=== PATIENT | female | born 1950 ===

== ENCOUNTER 2017-11-06 21:10 | Observation (INO) | payer MEDICARE, MEDICAID ==
--- NOTE | 2017-11-06 21:59 | ED PDOC ---
Arrival/HPI - General Chief Complaint: High Blood Pressure Time Seen by Provider: 11/06/17 21:50 Historian: Patient - History of Present Illness Narrative History of Present Illness (Text): 11/06/17 21:50 66 year old female, whose past medical history includes hypertension, hyperlipidemia and diabetes, who presents to the Emergency department complaining of neck and chest pain since 14:00 this afternoon. Patient notes he checked his blood pressure and it was at 200/100, so he panicked and came in to the Emergency department for further evaluation. Patient states her blood pressure was elevated on 11/02/17, and she came to see doctor who made some adjustments, giving her new medication, with no significant relief. Patient notes no improvement, stating she is not getting any better. Patient denies any fever, chills, shortness of breath, nausea, vomiting, diarrhea, urinary symptoms , back pain, headache, dizziness, or any other complaints. Time/Duration: Other (neck and chest pain since 14:00 this afternoon ) Symptom Onset: Sudden Symptom Course: Unchanged Activities at Onset: Light Context: Home Past Medical History - Provider Review Nursing Documentation Reviewed: Yes - Past History Past History: No Previous - Infectious Disease Hx of Infectious Diseases: None - Tetanus Immunization Tetanus Immunization: Unknown - Cardiac Hx Hypertension: Yes - Pulmonary Hx Asthma: Yes - Neurological HX Cerebrovascular Accident: No Hx Seizures: No Other/Comment: neuropathy - HEENT Hx HEENT Disorder: No - Renal Hx Renal Disorder: No - Endocrine/Metabolic Hx Diabetes Mellitus Type 2: Yes - Hematological/Oncological Hx Cancer: No - Integumentary Hx Dermatological Disorder: No - Musculoskeletal/Rheumatological Hx Musculoskeletal Disorders: No - Gastrointestinal Hx Gall Bladder Disease: Yes - Genitourinary/Gynecological Hx Sexually Transmitted Diseases: No - Psychiatric Hx Depression: No Hx Substance Use: No - Surgical History Hx Cholecystectomy: Yes - Anesthesia Hx Anesthesia: Yes Hx Anesthesia Reactions: No - Suicidal Assessment Feels Threatened In Home Enviroment: No Family/Social History - Physician Review Nursing Documentation Reviewed: Yes Family/Social History: No Known Family HX Smoking Status: Never Smoked Hx Alcohol Use: No Hx Substance Use: No Hx Substance Use Treatment: No Allergies/Home Meds Allergies/Adverse Reactions: Allergies No Known Allergies Allergy (Verified 10/30/15 10:33) Home Medications: Home Meds Medication Instructions Recorded Confirmed Fluticasone/Salmeterol 500/50 1 inh INH BID 10/30/15 11/06/17 [Advair Diskus 500/50] Metoprolol Tartrate [Lopressor] 25 mg PO BID 10/30/15 11/06/17 Gabapentin [Neurontin] 300 mg PO TID 12/30/15 11/06/17 Aspirin [Ecotrin] 1 tab PO DAILY 11/06/17 11/06/17 Ergocalciferol [Drisdol 50,000 1 cap PO Q7D 11/06/17 11/06/17 Intl Units Cap] Lisinopril [Zestril] 1 tab PO DAILY 11/06/17 11/06/17 Prednisone [Hilda] 1 tab PO DAILY 11/06/17 11/06/17 Rosuvastatin Calcium [Crestor] 1 tab PO HS 11/06/17 11/06/17 Review of Systems - Physician Review All systems were reviewed & negative as marked: Yes - Review of Systems Constitutional: Normal. absent: Fevers Eyes: Normal ENT: Normal Respiratory: Normal. absent: SOB Cardiovascular: Chest Pain (since 14:00 this afternoon). absent: Normal Gastrointestinal: Normal. absent: Diarrhea, Nausea, Vomiting Genitourinary Female: Normal Musculoskeletal: Neck Pain (neck pain since 14:00 this afternoon). absent: Normal, Back Pain Skin: Normal Neurological: Normal. absent: Headache, Dizziness Endocrine: Normal Hemo/Lymphatic: Normal Psychiatric: Normal Physical Exam Vital Signs Reviewed: Yes Vital Signs Temp Pulse Resp BP Pulse Ox 11/06/17 22:17 62 190/81 H 11/06/17 21:34 227/95 H 11/06/17 21:10 98.3 F 61 18 212/93 H 96 Temperature: Afebrile Blood Pressure: Hypertensive Pulse: Regular Respiratory Rate: Normal Appearance: Positive for: Well-Appearing, Non-Toxic Pain Distress: Mild Mental Status: Positive for: Alert and Oriented X 3 - Systems Exam Head: Present: Atraumatic, Normocephalic Pupils: Present: PERRL Extroacular Muscles: Present: EOMI Conjunctiva: Present: Normal Ears: Present: Normal Mouth: Present: Moist Mucous Membranes Pharnyx: Present: Normal Nose (External): Present: Atraumatic Nose (Internal): Present: Normal Inspection Neck: Present: Normal Range of Motion Respiratory/Chest: Present: Clear to Auscultation, Good Air Exchange. No: Respiratory Distress, Accessory Muscle Use Cardiovascular: Present: Regular Rate and Rhythm, Normal S1, S2. No: Murmurs Abdomen: No: Tenderness, Distention, Peritoneal Signs Back: Present: Normal Inspection Upper Extremity: Present: Normal Inspection. No: Cyanosis, Edema Lower Extremity: Present: Normal Inspection. No: Edema (no pedal edema) Neurological: Present: GCS=15, CN II-XII Intact, Speech Normal Skin: Present: Warm, Dry, Normal Color. No: Rashes Psychiatric: Present: Alert, Oriented x 3, Normal Insight, Normal Concentration Medical Decision Making ED Course and Treatment: 11/06/17 21:50 Impression: 66 year old female presents to the Emergency department complaining of neck and chest pain since 14:00 this afternoon. Differential Diagnosis included but are not limited to: Hypertensive urgency. chest pain, r/o CT. Plan: -- EKG -- Labs -- X-Ray of chest -- Apresoline -- Aspirin 325 mg PO -- O2 via Nasal Cannula -- Urinalysis -- Reassess and disposition Prior Visits: Notes and results from previous visits were reviewed. Progress Notes: EKG: Ordered, reviewed, and independently interpreted the EKG. Rate : 59 BPM Rhythm : Sinus bradycardia Interpretation : Normal axis. - RAD Interpretation Radiology Orders: 11/06/17 21:50 CHEST PORTABLE [RAD] Stat - EKG Interpretation Interpreted by ED Physician: Yes Type: 12 lead EKG - Medication Orders Current Medication Orders: Discontinued Medications Aspirin (Aspirin) 325 mg PO STAT STA Stop: 11/06/17 21:51 Last Admin: 11/06/17 22:16 Dose: 325 mg Hydralazine HCl (Apresoline) 10 mg IVP STAT STA Stop: 11/06/17 22:01 Last Admin: 11/06/17 22:17 Dose: 10 mg IVP Administration Document 11/06/17 22:17 AD (Rec: 11/06/17 22:17 AD [facility] [id number]) Charges for Administration # of IVP Administrations 1 MAR Pulse and Blood Pressure Document 11/06/17 22:17 AD (Rec: 11/06/17 22:17 AD [facility] [id number]) Pulse Pulse Rate (60-90 beats/min) 62 Blood Pressure Blood Pressure (100/60-150/90 mm Hg) 190/81 - Scribe Statement The provider has reviewed the documentation as recorded by the Scribe Sissy Guzmán All medical record entries made by the Scribe were at my direction and personally dictated by me. I have reviewed the chart and agree that the record accurately reflects my personal performance of the history, physical exam, medical decision making, and the department course for this patient. I have also personally directed, reviewed, and agree with the discharge instructions and disposition. Disposition/Present on Arrival - Present on Arrival Any Indicators Present on Arrival: No History of DVT/PE: No History of Uncontrolled Diabetes: No Urinary Catheter: No History of Decub. Ulcer: Yes History Surgical Site Infection Following: None - Disposition Have Diagnosis and Disposition been Completed?: Yes Diagnosis: Chest pain, Hypertensive urgency Disposition: HOSPITALIZED Disposition Time: 22:31 Condition: GOOD Discharge Instructions (ExitCare): Chest Pain (ED) Forms: [employer] (Filipino)
[2017-11-06 22:02] VITALS: BMI 27.7
[2017-11-06 22:29] LABS: BASO # 0.06 K/mm3 (0.0-2.0); BASO % 0.5 % (0.0-3.0); EOS # 3.2 (0.0-0.7); EOS % 27.2 % (1.5-5.0); GRAN # 4.05 (1.4-6.5); GRAN % 34.4 % (50.0-68.0); HEMOGLOBIN 13.1 g/dL (12.0-16.0); LYMPH # 3.8 (1.2-3.4); LYMPH % 31.9 % (22.0-35.0); MEAN CELL VOLUME 85.4 fl (80.0-105.0); MEAN CORPUSCULAR HEMOGLOBIN 28.6 pg (25.0-35.0); MEAN CORPUSCULAR HGB CONC 33.5 g/dl (31.0-37.0); MEAN PLATELET VOLUME 10.2 fl (7.0-11.0); MONO # 0.7 (0.1-0.6); PLATELET COUNT 411 10^3/uL (120.0-450.0); RBC 4.58 10^6/uL (3.5-6.1); RED CELL DISTRIBUTION WIDTH 12.9 % (11.5-14.5); WHITE BLOOD COUNT 11.8 10^3/ul (4.5-11.0)
[2017-11-06 22:40] LABS: ALB/GLOB RATIO 1.4 (1.1-1.8); ALBUMIN 4.3 g/dL (3.0-4.8); ALT/SGPT 22 U/L (7-56); AST/SGOT 26 U/L (14-36); BLOOD UREA NITROGEN 20 mg/dL (7-21); CALCIUM 9.5 mg/dL (8.4-10.5); GFR NON-AFRICAN AMERICAN 50
[2017-11-06 22:51] LABS: TROPONIN I < 0.01 ng/mL
--- NOTE | 2017-11-06 23:06 | ED PDOC ---
Physical Exam Vital Signs Reviewed: Yes Vital Signs Temp Pulse Resp BP Pulse Ox 11/06/17 22:34 62 18 156/74 H 98 11/06/17 22:17 62 190/81 H 11/06/17 21:34 227/95 H 11/06/17 21:10 98.3 F 61 18 212/93 H 96 Temperature: Afebrile Blood Pressure: Normal Pulse: Regular Respiratory Rate: Normal Appearance: Positive for: Well-Appearing, Non-Toxic, Comfortable Pain Distress: None Mental Status: Positive for: Alert and Oriented X 3 - Systems Exam Head: Present: Atraumatic, Normocephalic Pupils: Present: PERRL Extroacular Muscles: Present: EOMI Conjunctiva: Present: Normal Mouth: Present: Moist Mucous Membranes Neck: Present: Normal Range of Motion Respiratory/Chest: Present: Clear to Auscultation, Good Air Exchange. No: Respiratory Distress, Accessory Muscle Use Cardiovascular: Present: Regular Rate and Rhythm, Normal S1, S2. No: Murmurs Abdomen: No: Tenderness, Distention, Peritoneal Signs Back: Present: Normal Inspection Upper Extremity: Present: Normal Inspection. No: Cyanosis, Edema Lower Extremity: Present: Normal Inspection. No: Edema Neurological: Present: GCS=15, CN II-XII Intact, Speech Normal Skin: Present: Warm, Dry, Normal Color. No: Rashes Psychiatric: Present: Alert, Oriented x 3, Normal Insight, Normal Concentration Medical Decision Making ED Course and Treatment: 11/06/17 23:01 Case endorsed to me by Dr. Sellers, pending labs, Chest X-ray, and reassessment. Pt presents to the emergency department complaining of neck and chest pain today. 11/06/17 23:50 Case discussed with registered medical transcriptionist and Dr. Membreno. Accepts pt to hospitalist service. - Lab Interpretations Lab Results: 11/06/17 22:21 11/06/17 22:21 Lab Results 11/06/17 22:21: Sodium 140, Potassium 4.0, Chloride 103, Carbon Dioxide 26, Anion Gap 15, BUN 20, Creatinine 1.1, Est GFR ( Amer) > 60, Est GFR (Non- Af Amer) 50, Random Glucose 117 H, Calcium 9.5, Magnesium 1.8, Total Bilirubin 0.2, AST 26, ALT 22, Alkaline Phosphatase 77, Lactate Dehydrogenase 430, Total Creatine Kinase 50, Troponin I < 0.01, Total Protein 7.4, Albumin 4.3, Globulin 3.1, Albumin/Globulin Ratio 1.4 11/06/17 22:21: WBC 11.8 H D, RBC 4.58, Hgb 13.1, Hct 39.1, MCV 85.4, MCH 28.6, MCHC 33.5, RDW 12.9, Plt Count 411, MPV 10.2, Gran % 34.4 L, Lymph % (Auto) 31.9 , Hubbard % (Auto) 6.0, Eos % (Auto) 27.2 H, Baso % (Auto) 0.5, Gran # 4.05, Lymph # (Auto) 3.8 H, Hubbard # (Auto) 0.7 H, Eos # (Auto) 3.2 H, Baso # (Auto) 0.06, Neutrophils % (Manual) 38 L, Lymphocytes % (Manual) 34, Atypical Lymphs % 2 H, Monocytes % (Manual) 2, Eosinophils % (Manual) 23 H, Basophils % (Manual) 1, Platelet Evaluation Normal - RAD Interpretation Radiology Orders: 11/06/17 21:50 CHEST PORTABLE [RAD] Stat - Medication Orders Current Medication Orders: Discontinued Medications Aspirin (Aspirin) 325 mg PO STAT STA Stop: 11/06/17 21:51 Last Admin: 11/06/17 22:16 Dose: 325 mg Hydralazine HCl (Apresoline) 10 mg IVP STAT STA Stop: 11/06/17 22:01 Last Admin: 11/06/17 22:17 Dose: 10 mg IVP Administration Document 11/06/17 22:17 AD (Rec: 11/06/17 22:17 AD [facility] [id number]) Charges for Administration # of IVP Administrations 1 APR Pulse and Blood Pressure Document 11/06/17 22:17 AD (Rec: 11/06/17 22:17 AD [facility] [id number]) Pulse Pulse Rate (60-90 beats/min) 62 Blood Pressure Blood Pressure (100/60-150/90 mm Hg) 190/81 - Scribe Statement The provider has reviewed the documentation as recorded by the Scribashwini Barcenas All medical record entries made by the Scribashwini were at my direction and personally dictated by me. I have reviewed the chart and agree that the record accurately reflects my personal performance of the history, physical exam, medical decision making, and the department course for this patient. I have also personally directed, reviewed, and agree with the discharge instructions and disposition. Disposition/Present on Arrival - Present on Arrival Any Indicators Present on Arrival: No History of DVT/PE: No History of Uncontrolled Diabetes: No Urinary Catheter: No History of Decub. Ulcer: Yes History Surgical Site Infection Following: None - Disposition Have Diagnosis and Disposition been Completed?: Yes Diagnosis: Chest pain, Hypertensive urgency Disposition: HOSPITALIZED Disposition Time: 23:40 Condition: GOOD
[2017-11-06 23:17] LABS: ATYPICAL LYMPHOCYTE 2 % (0.0-0.0); BASOPHIL 1 % (0.0-1.0); EOSINOPHIL 23 % (0.0-3.0); LYMPHOCYTE 34 % (22.0-35.0); MONOCYTE 2 % (1.0-6.0); NEUTROPHIL 38 % (50.0-70.0)
[2017-11-06 23:18] LABS: PLATELET ESTIMATE NORMAL (NORMAL)
--- NOTE | 2017-11-07 00:47 | CP.PCM.HP ---
History of Present Illness - History of Present Illness History of Present Illness: Erin Barriga, PGY-1 H&P for Hospitalist Service This is a 66 year old female with PMH of HT, HLD, DM, peripheral neuropathy, unspecified vasculitis and asthma presenting to the hospital for CP and high blood pressure. Patient states she began having CP at 6pm and took a home blood pressure reading of 200/100 and subsequently came to the ER. She states she was recently started on lisinopril 20mg from her PCP whom she visited earlier in the week. She admits to being compliant with her medications. She states she has a history of uncertain vasculitis for which she is on prednisone 5mg. She is uncertain of the details of the vasculitis, but states she was diagnosed 2 years ago at [facility] where she had full workup done. She gets treated there every 6 months for her vasculitis symptoms but patient is unsure about details of treatment. Currently, she admits to lower back pain and denies CP, SOB, headaches, fevers, chills, nausea, vomiting, abdominal pain, urinary complaints, swelling, numbness, tingling, recent travel and recent sickness. 12 point ROS noted here, otherwise unremarkable. In ED, EKG noted to show sinus rhythm with HR of [address] changes. Troponin <0.01. CXR shows no acute disease (interpreted by me). Patient given hydralazine with improvement of BP. Patient will be admitted to tele. PMD: Dr. Maria Teresa Tyson PMH: as above SH: denies drinking, drugs and tobacco Sx: denies surgeries FH: HLD, HT All: none Meds: lisinopril, prednisone, metoprolol tartrate, gabapentin, rouvastatin Present on Admission - Present on Admission Any Indicators Present on Admission: No Past Patient History - Infectious Disease Hx of Infectious Diseases: None - Tetanus Immunizations Tetanus Immunization: Unknown - Past Medical History & Family History Past Medical History?: Yes - Past Social History Smoking Status: Never Smoked - CARDIAC Hx Hypertension: Yes - PULMONARY Hx Asthma: Yes - NEUROLOGICAL HX Cerebrovascular Accident: No Hx Seizures: No Other/Comment: neuropathy - HEENT Hx HEENT Problems: No - RENAL Hx Chronic Kidney Disease: No - ENDOCRINE/METABOLIC Hx Diabetes Mellitus Type 2: Yes - HEMATOLOGICAL/ONCOLOGICAL Hx Cancer: No - INTEGUMENTARY Hx Dermatological Problems: No - MUSCULOSKELETAL/RHEUMATOLOGICAL Hx Musculoskeletal Disorders: No - GASTROINTESTINAL Hx Gall Bladder Disease: Yes - GENITOURINARY/GYNECOLOGICAL Hx Sexually Transmitted Disorders: No - PSYCHIATRIC Hx Depression: No Hx Substance Use: No - SURGICAL HISTORY Hx Cholecystectomy: Yes - ANESTHESIA Hx Anesthesia: Yes Hx Anesthesia Reactions: No Meds Allergies/Adverse Reactions: Allergies Allergy/AdvReac Type Severity Reaction Status Date / Time No Known Allergies Allergy Verified 10/30/15 10:33 Physical Exam - Constitutional Appears: No Acute Distress - Head Exam Head Exam: ATRAUMATIC, NORMAL INSPECTION - Eye Exam Eye Exam: EOMI Pupil Exam: PERRL - ENT Exam ENT Exam: Mucous Membranes Moist - Respiratory Exam Respiratory Exam: Clear to Auscultation Bilateral. absent: Respiratory Distress - Cardiovascular Exam Cardiovascular Exam: REGULAR RHYTHM, +S1, +S2 - GI/Abdominal Exam GI & Abdominal Exam: Normal Bowel Sounds. absent: Distended, Firm, Guarding - Extremities Exam Extremities exam: Positive for: normal inspection. Negative for: calf tenderness - Neurological Exam Neurological exam: Alert, Oriented x3 - Skin Skin Exam: Normal Color, Warm Results - Vital Signs Recent Vital Signs: Last Vital Signs Temp 98.3 F 11/06/17 21:10 Pulse 62 11/06/17 22:34 Resp 18 11/06/17 22:34 BP 156/74 H 11/06/17 22:34 Pulse Ox 98 11/06/17 22:34 - Labs Result Diagrams: 11/06/17 22:21 11/06/17 22:21 Labs: Laboratory Results - last 24 hr 11/06/17 11/06/17 22:21 22:21 WBC 11.8 H D RBC 4.58 Hgb 13.1 Hct 39.1 MCV 85.4 MCH 28.6 MCHC 33.5 RDW 12.9 Plt Count 411 MPV 10.2 Gran % 34.4 L Lymph % (Auto) 31.9 Clark % (Auto) 6.0 Eos % (Auto) 27.2 H Baso % (Auto) 0.5 Gran # 4.05 Lymph # (Auto) 3.8 H Clark # (Auto) 0.7 H Eos # (Auto) 3.2 H Baso # (Auto) 0.06 Neutrophils % (Manual) 38 L Lymphocytes % (Manual) 34 Atypical Lymphs % 2 H Monocytes % (Manual) 2 Eosinophils % (Manual) 23 H Basophils % (Manual) 1 Platelet Evaluation Normal Sodium 140 Potassium 4.0 Chloride 103 Carbon Dioxide 26 Anion Gap 15 BUN 20 Creatinine 1.1 Est GFR ( Amer) > 60 Est GFR (Non-Af Amer) 50 Random Glucose 117 H Calcium 9.5 Magnesium 1.8 Total Bilirubin 0.2 AST 26 ALT 22 Alkaline Phosphatase 77 Lactate Dehydrogenase 430 Total Creatine Kinase 50 Troponin I < 0.01 Total Protein 7.4 Albumin 4.3 Globulin 3.1 Albumin/Globulin Ratio 1.4 Assessment & Plan - Assessment and Plan (Free Text) Assessment: This is a 66 year old female with PMH of HT, HLD, DM, peripheral neuropathy, unspecified vasculitis and asthma presenting to the hospital for CP and high blood pressure. Patient will be admitted to tele to rule out ACS. Will workup vasculitis. Plan: Chest Pain -EKG on admission showed normal rhythm with 59bpm, no ST changes -troponin initially <0.01, will trend -lipid panel pending -A1c pending -may consider echo, no previous on file -cardiology on consult, Dr. Owusu Hx Hypertension -continue home lopressor, lisinopril -BP currently controlled; initially uncontrolled on presentation. Given hydralazine in the ED Hx of Vasculitis - unspecified -will consider churg lynn disease; CBC notable for high eosinophils with history of asthma -admits to previous history of fever/weight loss/joint swelling in hands and feet that are now controlled -ESR, CRP pending -ANCA panel pending -urine protein/eosinophils pending -continue home prednisone 5mg Hx DM -insulin low ACHS Hx Peripheral Neuropathy -continue home gabapentin Hx Asthma -continue home brovana, pulmicort Hx HLD -continue atorvastatin PPX with protonic and heparin Heart Healthy Diet Patient seen and case discussed with attending, Dr. Chaka Barriga, PGY1
[2017-11-07 01:20] LABS: PH,URINE 6.5 (4.7-8.0); URINE BILIRUBIN NEGATIVE (NEGATIVE); URINE BLOOD TRACE-INTACT (NEGATIVE); URINE GLUCOSE (UA) NEGATIVE (NEGATIVE); URINE LEUKOCYTE ESTERASE MODERATE Leu/uL (NEGATIVE); URINE PROTEIN NEGATIVE mg/dL (<30 mg/dL); URINE UROBILINOGEN 0.2 E.U./dL (<1 E.U./dL)
[2017-11-07 01:21] LABS: URINE APPEARANCE CLEAR (CLEAR); URINE COLOR STRAW (YELLOW)
[2017-11-07 01:44] LABS: URINE BACTERIA SMALL (NEG); URINE WBC 0 - 2 /hpf (0-6)
[2017-11-07] MEDS ORDERED: Ergocalciferol 50,000 Intl Units Cap PO SCH (02:00)
[2017-11-07 06:53] VITALS: O2SAT 98
[2017-11-07 07:17] LABS: BASO # 0.05 K/mm3 (0.0-2.0); BASO % 0.5 % (0.0-3.0); EOS # 2.7 (0.0-0.7); GRAN # 5.59 (1.4-6.5); GRAN % 50.9 % (50.0-68.0); LYMPH # 1.8 (1.2-3.4); LYMPH % 16.7 % (22.0-35.0); MEAN CELL VOLUME 84.9 fl (80.0-105.0); MEAN CORPUSCULAR HEMOGLOBIN 28.5 pg (25.0-35.0); MEAN CORPUSCULAR HGB CONC 33.6 g/dl (31.0-37.0); MEAN PLATELET VOLUME 10.6 fl (7.0-11.0); MONO # 0.8 (0.1-0.6); MONO % 6.9 % (1.0-6.0); RBC 4.56 10^6/uL (3.5-6.1); RED CELL DISTRIBUTION WIDTH 12.8 % (11.5-14.5)
[2017-11-07 07:42] LABS: ALB/GLOB RATIO 1.4 (1.1-1.8); ALT/SGPT 28 U/L (7-56); AST/SGOT 21 U/L (14-36); BLOOD UREA NITROGEN 17 mg/dL (7-21); CALCIUM 9.5 mg/dL (8.4-10.5); GFR NON-AFRICAN AMERICAN 45; HDL CHOLESTEROL 49 mg/dL (29-60)
[2017-11-07 07:44] LABS: TROPONIN I < 0.01 ng/mL
[2017-11-07 07:47] LABS: LDL CHOLESTEROL 103 mg/dL (0-129)
[2017-11-07] MEDS ORDERED: Arformoterol 15 mcg/2 ml Inh Sol IH SCH ×2 (08:00→08:23)
[2017-11-07] MEDS: Insulin Lispro (humaLOG) LOW Coverage SC SCH ×4 (08:06→21:50)
[2017-11-07] MEDS: Pantoprazole 20 mg EC Tab PO SCH ×2 (08:06→16:33)
[2017-11-07] MEDS: Budesonide 0.5 mg/2 ml Inhal Susp UD IH SCH ×2 (08:23→19:46)
[2017-11-07] MEDS: Arformoterol 15 mcg/2 ml Inh Sol IH SCH ×2 (08:34→19:45)
--- NOTE | 2017-11-07 09:31 | CARD ---
APPROVED REPORT Date of service: 11/07/2017 EKG Measurement Heart [id number] <Conclusion> Normal sinus rhythm Moderate voltage criteria for LVH, may be normal variant Borderline ECG
--- NOTE | 2017-11-07 09:35 | CARD ---
APPROVED REPORT Date of service: 11/06/2017 EKG Measurement Heart [id number] <Conclusion> Sinus bradycardia Minimal voltage criteria for LVH, may be normal variant Borderline ECG
--- NOTE | 2017-11-07 10:44 | RAD ---
Date of service: 11/06/2017 HISTORY: chest pain COMPARISON: 01/31/2016 FINDINGS: LUNGS: Minimal scar or infiltrate in the right middle lobe. Previous pneumonia in this area PLEURA: No significant pleural effusion identified, no pneumothorax apparent. CARDIOVASCULAR: Normal. OSSEOUS STRUCTURES: No significant abnormalities. VISUALIZED UPPER ABDOMEN: Normal. OTHER FINDINGS: None. IMPRESSION: Minimal scar or infiltrate in the right middle lobe. Previous pneumonia in this area
[2017-11-08] MEDS: Pantoprazole 20 mg EC Tab PO SCH ×2 (05:20→16:42)
[2017-11-08 07:33] LABS: BASO # 0.04 K/mm3 (0.0-2.0); BASO % 0.5 % (0.0-3.0); EOS # 1.3 (0.0-0.7); EOS % 14.4 % (1.5-5.0); GRAN # 2.7 (1.4-6.5); GRAN % 30.7 % (50.0-68.0); HEMOGLOBIN 11.7 g/dL (12.0-16.0); LYMPH % 45.9 % (22.0-35.0); MEAN CELL VOLUME 85.5 fl (80.0-105.0); MEAN CORPUSCULAR HEMOGLOBIN 27.8 pg (25.0-35.0); MEAN CORPUSCULAR HGB CONC 32.5 g/dl (31.0-37.0); MEAN PLATELET VOLUME 10.6 fl (7.0-11.0); MONO # 0.8 (0.1-0.6); MONO % 8.5 % (1.0-6.0); RBC 4.21 10^6/uL (3.5-6.1); RED CELL DISTRIBUTION WIDTH 13.1 % (11.5-14.5); WHITE BLOOD COUNT 8.8 10^3/ul (4.5-11.0)
[2017-11-08 07:35] LABS: ALB/GLOB RATIO 1.4 (1.1-1.8); ALBUMIN 3.5 g/dL (3.0-4.8); CALCIUM 9.2 mg/dL (8.4-10.5)
[2017-11-08] MEDS: Arformoterol 15 mcg/2 ml Inh Sol IH SCH (08:01)
[2017-11-08] MEDS: Budesonide 0.5 mg/2 ml Inhal Susp UD IH SCH (08:02)
[2017-11-08] MEDS: Insulin Lispro (humaLOG) LOW Coverage SC SCH ×3 (08:03→16:30)
--- NOTE | 2017-11-08 16:30 | CP.PCM.DIS ---
<Lucas Obando - Last Filed: 11/08/17 16:25> Provider - Provider Date of Admission: 11/06/17 23:43 Attending physician: Hebert Copeland MD Primary care physician: Patricia Tyson MD Consults: Cardio - Dr. Owusu Time Spent in preparation of Discharge (in minutes): 45 Diagnosis - Discharge Diagnosis (1) HTN (hypertension) Status: Chronic (2) Diabetic neuropathy Status: Chronic Hospital Course - Lab Results Lab Results: Most Recent Lab Values WBC 8.8 10^3/ul (4.5-11.0) 11/08/17 06:30 RBC 4.21 10^6/uL (3.5-6.1) 11/08/17 06:30 Hgb 11.7 g/dL (12.0-16.0) L 11/08/17 06:30 Hct 36.0 % (36.0-48.0) 11/08/17 06:30 MCV 85.5 fl (80.0-105.0) 11/08/17 06:30 MCH 27.8 pg (25.0-35.0) 11/08/17 06:30 MCHC 32.5 g/dl (31.0-37.0) 11/08/17 06:30 RDW 13.1 % (11.5-14.5) 11/08/17 06:30 Plt Count 384 10^3/uL (120.0-450.0) 11/08/17 06:30 MPV 10.6 fl (7.0-11.0) 11/08/17 06:30 Gran % 30.7 % (50.0-68.0) L 11/08/17 06:30 Lymph % (Auto) 45.9 % (22.0-35.0) H 11/08/17 06:30 [place] % (Auto) 8.5 % (1.0-6.0) H 11/08/17 06:30 Eos % (Auto) 14.4 % (1.5-5.0) H 11/08/17 06:30 Baso % (Auto) 0.5 % (0.0-3.0) 11/08/17 06:30 Gran # 2.70 (1.4-6.5) 11/08/17 06:30 Lymph # (Auto) 4.0 (1.2-3.4) H 11/08/17 06:30 [place] # (Auto) 0.8 (0.1-0.6) H 11/08/17 06:30 Eos # (Auto) 1.3 (0.0-0.7) H 11/08/17 06:30 Baso # (Auto) 0.04 K/mm3 (0.0-2.0) 11/08/17 06:30 Neutrophils % (Manual) 38 % (50.0-70.0) L 11/06/17 22:21 Lymphocytes % (Manual) 34 % (22.0-35.0) 11/06/17 22:21 Atypical Lymphs % 2 % (0.0-0.0) H 11/06/17 22:21 Monocytes % (Manual) 2 % (1.0-6.0) 11/06/17 22:21 Eosinophils % (Manual) 23 % (0.0-3.0) H 11/06/17 22:21 Basophils % (Manual) 1 % (0.0-1.0) 11/06/17 22:21 Platelet Evaluation Normal (NORMAL) 11/06/17 22:21 ESR 30 mm/hr (0.0-20.0) H 11/07/17 06:00 Sodium 140 mmol/L (132-148) 11/08/17 05:00 Potassium 4.3 mmol/L (3.6-5.0) 11/08/17 05:00 Chloride 105 mmol/L (98-107) 11/08/17 05:00 Carbon Dioxide 27 mmol/L (21-33) 11/08/17 05:00 Anion Gap 13 (10-20) 11/08/17 05:00 BUN 21 mg/dL (7-21) 11/08/17 05:00 Creatinine 1.2 mg/dl (0.7-1.2) 11/08/17 05:00 Est GFR ( Amer) 54 11/08/17 05:00 Est GFR (Non-Af Amer) 45 11/08/17 05:00 POC Glucose (mg/dL) 148 mg/dL (65-110) H 11/08/17 11:04 Random Glucose 102 mg/dL (70-110) 11/08/17 05:00 Hemoglobin A1c 6.9 % (4.2-6.5) H 11/07/17 06:00 Calcium 9.2 mg/dL (8.4-10.5) 11/08/17 05:00 Magnesium 1.8 mg/dL (1.7-2.2) 11/06/17 22:21 Total Bilirubin 0.3 mg/dL (0.2-1.3) 11/08/17 05:00 Direct Bilirubin 0.0 mg/dL (0.0-0.4) 11/07/17 06:00 AST 17 U/L (14-36) 11/08/17 05:00 ALT 29 U/L (7-56) 11/08/17 05:00 Alkaline Phosphatase 71 U/L (38-126) 11/08/17 05:00 Lactate Dehydrogenase 430 U/L (333-699) 11/06/17 22:21 Total Creatine Kinase 50 U/L (35-230) 11/06/17 22:21 Troponin I < 0.01 ng/mL 11/07/17 12:50 C-Reactive Protein 5.50 mg/L (0.0-9.9) 11/07/17 06:00 Total Protein 6.0 g/dL (5.8-8.3) 11/08/17 05:00 Albumin 3.5 g/dL (3.0-4.8) 11/08/17 05:00 Globulin 2.5 gm/dL 11/08/17 05:00 Albumin/Globulin Ratio 1.4 (1.1-1.8) 11/08/17 05:00 Triglycerides 170 mg/dL (35-160) H 11/07/17 06:00 Cholesterol 194 mg/dL (130-200) 11/07/17 06:00 LDL Cholesterol Direct 103 mg/dL (0-129) 11/07/17 06:00 HDL Cholesterol 49 mg/dL (29-60) 11/07/17 06:00 Urine Color Straw (YELLOW) 11/07/17 00:56 Urine Appearance Clear (CLEAR) 11/07/17 00:56 Urine pH 6.5 (4.7-8.0) 11/07/17 00:56 Ur Specific [place] 1.010 (1.005-1.035) 11/07/17 00:56 Urine Protein Negative mg/dL (<30 mg/dL) 11/07/17 00:56 Urine Glucose (UA) Negative mg/dL (NEGATIVE) 11/07/17 00:56 Urine Ketones Negative mg/dL (NEGATIVE) 11/07/17 00:56 Urine Blood Trace-intact (NEGATIVE) H 11/07/17 00:56 Urine Nitrate Negative (NEGATIVE) 11/07/17 00:56 Urine Bilirubin Negative (NEGATIVE) 11/07/17 00:56 Urine Urobilinogen 0.2 E.U./dL (<1 E.U./dL) 11/07/17 00:56 Ur Leukocyte Esterase Moderate [place]/uL (NEGATIVE) H 11/07/17 00:56 Urine RBC 2 - 5 /hpf (0-2) 11/07/17 00:56 Urine WBC 0 - 2 /hpf (0-6) 11/07/17 00:56 Ur Epithelial Cells 1 - 3 /hpf (0-5) 11/07/17 00:56 Urine Bacteria Small (NEG) 11/07/17 00:56 Urine Other Utrans 11/07/17 00:56 Urine Eosinophils Negative 11/07/17 20:30 U Random Total Protein 19 mg/L 11/07/17 20:30 - Hospital Course Hospital Course: 66 year old female with past medical history of HTN, HLD, DM, and vasculitis presented to the hospital for elevated blood pressure. Patient had elevated blood pressures of 200's/100's. Patient was placed on her medications and her blood pressure normalized. Patient had troponins trended which were negative. Patient had a lipid profile that was negative. Patient was seen today and denied any chest pain, shortness of breath, nausea, vomiting, diarrhea, fever, chills. Patient will be sent home on blood pressure regimen and will follow up with PMD within 1 week. Discharge Exam - Head Exam Head Exam: ATRAUMATIC, NORMAL INSPECTION - Eye Exam Eye Exam: EOMI, Normal appearance - Respiratory Exam Respiratory Exam: NORMAL BREATHING PATTERN, UNREMARKABLE - Cardiovascular Exam Cardiovascular Exam: RRR, +S1, +S2 - GI/Abdominal Exam GI & Abdominal Exam: Normal Bowel Sounds, Soft, Unremarkable - Extremities Exam Extremities exam: normal inspection - Neurological Exam Neurological exam: Alert, CN II-XII Intact, Oriented x3 - Psychiatric Exam Psychiatric exam: Normal Affect, Normal Mood - Skin Skin Exam: Normal Color, Warm Discharge Plan - Discharge Medications Prescriptions: Aspirin 81 mg PO DAILY #14 tab.chew Fluticasone/Salmeterol 500/50 [Advair Diskus 500/50] 1 inh INH BID #1 puff Gabapentin [Neurontin] 300 mg PO TID #21 cap Lisinopril [Zestril] 20 tab PO DAILY #14 tab Metoprolol Tartrate [Lopressor] 25 mg PO BID #14 tab predniSONE [predniSONE Tab] 5 mg PO DAILY #14 tab Rosuvastatin Calcium [Crestor] 10 tab PO HS #14 tab - Follow Up Plan Condition: GOOD Disposition: HOME/ ROUTINE Instructions: Malignant Hypertension, High Blood Pressure (DC), Chest Pain (DC) Additional Instructions: Follow up with PMD in 1 week Take medications as prescribed Referrals: Patricia Tyson MD [Primary Care Provider] - <Hebert Copeland - Last Filed: 11/08/17 17:22> Provider - Provider Date of Admission: 11/06/17 23:43 Attending physician: Hebert Copeland MD Primary care physician: Patricia Tyson MD Hospital Course - Lab Results Lab Results: Most Recent Lab Values WBC 8.8 10^3/ul (4.5-11.0) 11/08/17 06:30 RBC 4.21 10^6/uL (3.5-6.1) 11/08/17 06:30 Hgb 11.7 g/dL (12.0-16.0) L 11/08/17 06:30 Hct 36.0 % (36.0-48.0) 11/08/17 06:30 MCV 85.5 fl (80.0-105.0) 11/08/17 06:30 MCH 27.8 pg (25.0-35.0) 11/08/17 06:30 MCHC 32.5 g/dl (31.0-37.0) 11/08/17 06:30 RDW 13.1 % (11.5-14.5) 11/08/17 06:30 Plt Count 384 10^3/uL (120.0-450.0) 11/08/17 06:30 MPV 10.6 fl (7.0-11.0) 11/08/17 06:30 Gran % 30.7 % (50.0-68.0) L 11/08/17 06:30 Lymph % (Auto) 45.9 % (22.0-35.0) H 11/08/17 06:30 [place] % (Auto) 8.5 % (1.0-6.0) H 11/08/17 06:30 Eos % (Auto) 14.4 % (1.5-5.0) H 11/08/17 06:30 Baso % (Auto) 0.5 % (0.0-3.0) 11/08/17 06:30 Gran # 2.70 (1.4-6.5) 11/08/17 06:30 Lymph # (Auto) 4.0 (1.2-3.4) H 11/08/17 06:30 [place] # (Auto) 0.8 (0.1-0.6) H 11/08/17 06:30 Eos # (Auto) 1.3 (0.0-0.7) H 11/08/17 06:30 Baso # (Auto) 0.04 K/mm3 (0.0-2.0) 11/08/17 06:30 Neutrophils % (Manual) 38 % (50.0-70.0) L 11/06/17 22:21 Lymphocytes % (Manual) 34 % (22.0-35.0) 11/06/17 22:21 Atypical Lymphs % 2 % (0.0-0.0) H 11/06/17 22:21 Monocytes % (Manual) 2 % (1.0-6.0) 11/06/17 22:21 Eosinophils % (Manual) 23 % (0.0-3.0) H 11/06/17 22:21 Basophils % (Manual) 1 % (0.0-1.0) 11/06/17 22:21 Platelet Evaluation Normal (NORMAL) 11/06/17 22:21 ESR 30 mm/hr (0.0-20.0) H 11/07/17 06:00 Sodium 140 mmol/L (132-148) 11/08/17 05:00 Potassium 4.3 mmol/L (3.6-5.0) 11/08/17 05:00 Chloride 105 mmol/L (98-107) 11/08/17 05:00 Carbon Dioxide 27 mmol/L (21-33) 11/08/17 05:00 Anion Gap 13 (10-20) 11/08/17 05:00 BUN 21 mg/dL (7-21) 11/08/17 05:00 Creatinine 1.2 mg/dl (0.7-1.2) 11/08/17 05:00 Est GFR ( Amer) 54 11/08/17 05:00 Est GFR (Non-Af Amer) 45 11/08/17 05:00 POC Glucose (mg/dL) 124 mg/dL (65-110) H 11/08/17 16:18 Random Glucose 102 mg/dL (70-110) 11/08/17 05:00 Hemoglobin A1c 6.9 % (4.2-6.5) H 11/07/17 06:00 Calcium 9.2 mg/dL (8.4-10.5) 11/08/17 05:00 Magnesium 1.8 mg/dL (1.7-2.2) 11/06/17 22:21 Total Bilirubin 0.3 mg/dL (0.2-1.3) 11/08/17 05:00 Direct Bilirubin 0.0 mg/dL (0.0-0.4) 11/07/17 06:00 AST 17 U/L (14-36) 11/08/17 05:00 ALT 29 U/L (7-56) 11/08/17 05:00 Alkaline Phosphatase 71 U/L (38-126) 11/08/17 05:00 Lactate Dehydrogenase 430 U/L (333-699) 11/06/17 22:21 Total Creatine Kinase 50 U/L (35-230) 11/06/17 22:21 Troponin I < 0.01 ng/mL 11/07/17 12:50 C-Reactive Protein 5.50 mg/L (0.0-9.9) 11/07/17 06:00 Total Protein 6.0 g/dL (5.8-8.3) 11/08/17 05:00 Albumin 3.5 g/dL (3.0-4.8) 11/08/17 05:00 Globulin 2.5 gm/dL 11/08/17 05:00 Albumin/Globulin Ratio 1.4 (1.1-1.8) 11/08/17 05:00 Triglycerides 170 mg/dL (35-160) H 11/07/17 06:00 Cholesterol 194 mg/dL (130-200) 11/07/17 06:00 LDL Cholesterol Direct 103 mg/dL (0-129) 11/07/17 06:00 HDL Cholesterol 49 mg/dL (29-60) 11/07/17 06:00 Urine Color Straw (YELLOW) 11/07/17 00:56 Urine Appearance Clear (CLEAR) 11/07/17 00:56 Urine pH 6.5 (4.7-8.0) 11/07/17 00:56 Ur Specific [place] 1.010 (1.005-1.035) 11/07/17 00:56 Urine Protein Negative mg/dL (<30 mg/dL) 11/07/17 00:56 Urine Glucose (UA) Negative mg/dL (NEGATIVE) 11/07/17 00:56 Urine Ketones Negative mg/dL (NEGATIVE) 11/07/17 00:56 Urine Blood Trace-intact (NEGATIVE) H 11/07/17 00:56 Urine Nitrate Negative (NEGATIVE) 11/07/17 00:56 Urine Bilirubin Negative (NEGATIVE) 11/07/17 00:56 Urine Urobilinogen 0.2 E.U./dL (<1 E.U./dL) 11/07/17 00:56 Ur Leukocyte Esterase Moderate [place]/uL (NEGATIVE) H 11/07/17 00:56 Urine RBC 2 - 5 /hpf (0-2) 11/07/17 00:56 Urine WBC 0 - 2 /hpf (0-6) 11/07/17 00:56 Ur Epithelial Cells 1 - 3 /hpf (0-5) 11/07/17 00:56 Urine Bacteria Small (NEG) 11/07/17 00:56 Urine Other Utrans 11/07/17 00:56 Urine Eosinophils Negative 11/07/17 20:30 U Random Total Protein 19 mg/L 11/07/17 20:30 Attending/Attestation - Attestation I have personally seen and examined this patient.: Yes I have fully participated in the care of the patient.: Yes I have reviewed all pertinent clinical information, including history, physical exam and plan: Yes Notes (Text): 11/07/17 66 year old female with past medical history of hypertension, diabetes and dyslipidemia who presented with complaint of chest pain and elevated blood pressure. Serial cardiac enzymes were negative and ACS was ruled out. Her chest pain resolved and blood pressure improved. She was seen by cardiology and cleared for discharge. Patient is discharged home to follow up with her pmd. Counselled on low salt diet. Monitor bp at home and at pmd office. Hebert Copeland MD Hospitalist.
[2017-11-08 17:42] VITALS: BP 181/89; PULSE 64; RESP 18; TEMP 97.8
--- NOTE | 2017-11-09 00:05 | CON ---
DATE: 11/08/2017 REASON FOR CONSULTATION: Chest pain. HISTORY OF PRESENT ILLNESS: The patient is a 66-year-old female who has history of hypertension, diabetes mellitus, hyperlipidemia, presented because of pain that she describes as upper back, just below the neck. The patient denies any radiation of her pain and denies any associated diaphoresis or shortness of breath. The patient denies any flu-like symptoms and denies any known prior cardiac history other than history of hypertension. At the time of my evaluation, the patient was chest pain free. SOCIAL HISTORY: The patient is nonsmoker, nondrinker. MEDICATIONS: Brovana 15 mcg inhalation every 12 hours, aspirin 81 mg once a day, heparin 5000 units subcutaneously twice a day, Lipitor 40 mg once a day, Lopressor 25 mg twice a day, Neurontin 300 mg t.i.d. prednisone 5 mg once a day, Protonix 20 mg p.o. twice a day, Zestril 20 mg once a day. PHYSICAL EXAMINATION: GENERAL: The patient is an elderly female who does not appear to be in acute distress. VITAL SIGNS: Blood pressure 145/73, heart rate 55, temperature 98.7, respirations 18. HEENT: Head normocephalic. CHEST: Clear. HEART: Heart sounds regular. ABDOMEN: Soft. EXTREMITIES: No edema. LABORATORY DATA: Hemoglobin and hematocrit 11.7 and 36, white count and platelet count are within normal limits. Today's SMA-7 is entirely within normal limits. Three sets of troponins are negative. Lipid profile is within normal limits except for triglycerides of 170. EKG revealed sinus rhythm with moderate voltage criteria for LVH. ASSESSMENT: 1. Atypical chest pain, myocardial infarction was ruled out. 2. Uncontrolled diabetes mellitus. RECOMMENDATIONS: Continue Lipitor, Lopressor, Zestril and the patient can undergo an outpatient treadmill stress test as well as an echocardiogram. Rod Campos MD
[2017-11-10 22:35] LABS: ANCA SCREEN NEGATIVE (NEGATIVE)
== END 2017-11-08 18:59 | disposition home or self-care (01) ==
LOC: ED 21:10 → ERH 23:43 → 2RNO 11-07 01:16
PROVIDERS: ADMIT Internal Medicine; ATTEND Internal Medicine
DX: R07.89 Other chest pain (principal); I16.0 Hypertensive urgency; E78.5 Hyperlipidemia, unspecified; I10 Essential (primary) hypertension; E11.42 Type 2 diabetes mellitus with diabetic polyneuropathy; J45.909 Unspecified asthma, uncomplicated; I77.6 Arteritis, unspecified
CPT/HCPCS: 36415; 71045; 80053; 80061; 81001; 82248; 82550; 82948; 83036; 83615; 83735; 84156; 84484; 85025; 85651; 86021; 86140; 87205; 93005; 94640; 96374; 99285; G0378; J0360; J1644